=== PATIENT | female | born 1990 | race American Indian/Alaskan Native ===

== ENCOUNTER 2020-02-14 15:56 | Outpatient (CLI) | payer MEDICAID ==
[2020-02-14 16:31] VITALS: BP 110/59
[2020-02-14] MEDS ORDERED: LACTATED RINGERS 1,000 ML ONE (16:56)
[2020-02-14] MEDS ORDERED: LACTATED RINGERS 500 ML IV ONE (17:02)
--- NOTE | 2020-02-14 18:30 | Ultrasound Report ---
ULTRASOUND OBSTETRIC INDICATION / CLINICAL INFORMATION: placental location. Clinical Gestational Age (GA): 27 weeks 4 days TECHNIQUE: Transabdominal. COMPARISON: None available. FINDINGS: There is a single intrauterine . Presentation is cephalic. Heart rate 155 bpm. The placenta is anterior and low lying, grade 0. Incidental note of uterine fibroid measuring 3 cm in greatest mention. Signer Name: Amarjit Vanessa MD Signed: 02/14/2020 6:26 PM Workstation Name: [id number]
== END 2020-02-14 19:15 | disposition home or self-care (01) ==
LOC: TRG 15:56 → APU 15:58 → TRG 19:15
PROVIDERS: ATTEND Obstetrics & Gynecology
DX: O62.9 Abnormality of forces of labor, unspecified (principal); O42.912 Preterm premature rupture of membranes, unspecified as to length of time between rupture and onset of labor, second trimester; Z3A.27 27 weeks gestation of pregnancy
CPT/HCPCS: 36415; 59025; 76815; 82731; J7120; 96360